=== PATIENT | female | born 1930 | race Caucasian/White ===

== ENCOUNTER → 2018-06-13 | Outpatient (CLI) | payer MEDICARE ==
[2018-06-13 11:39] VITALS: BP 154/84; PULSE 101; RESP 16
--- NOTE | 2018-06-13 11:59 | P.PN ---
Subjective Progress Note Date: 06/13/18 This is a pleasant 88-year-old lady with chronic history of lower back pain and radiation to the lower extremities more on the right side than the left side. The patient also feels no burning pain in the right thigh that happens intermittently. She also feels some weakness in her legs but she denies any bowel or bladder dysfunction or any weight loss. She also denies any nocturnal pain. The patient had lumbar medial branch RFA previously and she responded very well to these procedures was prolonged pain relief more than 6 months as she states. She denies taking any anticoagulants except for aspirin. She does have history of diabetes with history of vaginal yeast infection after getting steroids from one of our procedures . Today, pt denies new-onset weakness, bowel/bladder incontinence, or any other signs or symptoms of cauda equina syndrome. There are no signs of acute intoxication, and no indications of medication diversion or overuse. In addition to above, 13-point review of systems is also negative for chest pain, shortness of breath, changes in vision, changes in hearing, new onset weakness, abdominal pain, diarrhea, extreme fatigue, malaise, fever, skin changes, homicidal or suicidal ideation, or bowel or bladder incontinence. Vital Signs: Reviewed in EMR Gen: AAOx3, NAD HEENT: PERRLA,hearing grossly normal Pulm: resp unlabored,CTA Heart:S1,S2, No Mur Neck: supple, trachea midline Neuro exam of the lower extremities: Decreased muscle strength to 4 out of 5 bilaterally and symmetrically in the lower extremities. More weakness in the right hip flexion strength and knee flexion bilaterally. Decreased but symmetrical knee reflexes and absent ankle reflexes bilaterally. Straight leg raising test: Negative Amanuel's test: Range of motion of the lumbar spine: Facet loading test: Positive Tenderness in the paravertebral musculature: Mild tenderness in the lumbar paravertebral area on the right side Neuro: CN II-XII grossly intact, Imaging: Reviewed in EMR/chart Assessment: Lumbar spondylosis without myelopathy Diabetes Plan: 1. Explanation: Opioid and psychological risk scores were reviewed. Diagnoses, prognoses, and multiple treatment options including but not limited to physical therapy, interventional therapies, adjuvant medical therapies, narcotic medication therapies, and surgery were discussed with the patient and all questions were answered to the patient's satisfaction. 2. Opioid agreement: The patient does not use opioids 3. Counseling: The patient was counseled extensively on SMOKING CESSATION, BODY MASS INDEX, EXERCISE. Specifically, the patient was instructed regarding the importance of smoking cessation, obesity, and exercise in the context of both chronic pain and overall health. 4. Procedures: Scheduled for right lumbar medial branch RFA using four needles for levels L3 4, L4 5, and L5-S1. If this procedure does not improve her burning pain in the right side and then we'll plan on doing an MRI on the lumbar spine. No steroids should be used for this procedure. 5. Consultations: None 6. Investigations: May need lumbar spine MRI in the future if she does not respond to the above-mentioned procedure 7. Medications: Continue using Tylenol for pain 8. Disposition: 9. Maps were reviewed and were appropriate. PQRS measures: 1-Patient's medications are documented in the chart. 2-Tobacco use is negative, counseling given 3-Patient has not had a pneumococcal vaccine. 4-Advanced care planning discussed, patient unable to give 5-Opioid contract signed with the patient. 6-Pain positive, follow-up visit or procedure scheduled 7-Patient's blood pressure measured and documented within normal limits. 8-Patient's weight was measured, and body mass index within the normal limits. 9-Patient WAS NOT identified as an unhealthy alcohol user. Objective - Vital Signs Vital signs: Vital Signs Temp Pulse 101 H 06/13/18 11:34 Resp 16 06/13/18 11:34 BP 154/84 06/13/18 11:34 Pulse Ox Intake & Output 06/12/18 06/13/18 06/13/18 18:59 06:59 18:59 Weight 52.163 kg
== END ==
LOC: PNWHC3 11:21
PROVIDERS: ATTEND Anesthesiology
DX: M47.816 Spondylosis without myelopathy or radiculopathy, lumbar region (principal); E11.9 Type 2 diabetes mellitus without complications
CPT/HCPCS: 99211

== ENCOUNTER → 2018-07-06 | Outpatient (CLI) | payer MEDICARE ==
--- NOTE | 2018-07-06 21:09 | US ---
EXAMINATION TYPE: US carotid duplex BILAT DATE OF EXAM: 07/06/2018 COMPARISON: NONE CLINICAL HISTORY: I65.23 OCCLUSION AND STENOSIS. No hx of TIA, patient states being on blood pressure meds due to carotid arteries. EXAM MEASUREMENTS: RIGHT: Peak Systolic Velocity (PSV) cm/sec ----- Right CCA: 51.7 ----- Right ICA: 185 ----- Right ECA: 48.1 ICA/CCA ratio: 3.6 RIGHT: End Diastole cm/sec ----- Right CCA: 12.9 ----- Right ICA: 28.8 ----- Right ECA: 1.2 LEFT: Peak Systolic Velocity (PSV) cm/sec ----- Left CCA: 63.2 ----- Left ICA: 87.9 ----- Left ECA: 89.0 ICA/CCA ratio: 1.4 LEFT: End Diastole cm/sec ----- Left CCA: 9.3 ----- Left ICA: 21.4 ----- Left ECA: 5.5 VERTEBRALS (direction of flow): Right Vertebral: Antegrade Left Vertebral: Antegrade Rhythm: Normal No plaque or wall thickening visualized. Elevated right distal ICA. Right significant stenosis. Ri ght ICA appears to be in a 's' shaped curvature, which could account for elevated velocity. IMPRESSION: 1. No sizable atherosclerotic plaque identified. There does appear to be ectasia of the right interna l carotid artery with increased right distal ICA velocity. The ratio is within normal limits. Elevate d velocity may be secondary to ectasia with no definite significant stenosis felt present. Given the discrepancy between the velocity and the ratio correlation with CTA of the carotid arteries could be performed as clinically warranted. Criteria for Assigning % of Stenosis / Diameter reduction (Estimation based on the indirect measurements of the internal carotid artery velocities (ICA PSV). 1. Normal (no stenosis)=ICA PSV < 125 cm/s: ratio < 2.0: ICA EDV<40 cm/s. 2. Less than 50% stenosis=ICA PSV < 125 cm/s: ratio < 2.0: ICA EDV<40 cm/s. 3. 50 to 69% stenosis=ICA PSV of 125 to 230 cm/s: ration 2.0 ? 4.0: ICA EDV 40-100 cm/s. 4. Greater than 70% stenosis to near occlusion= ICA PSV > 230 cm/s: ratio > 4.0: ICA EDV > 100 cm/s. 5. Near occlusion= ICA PSV velocities may be low or undetectable: variable ratio and ICA EDV. 6. Total occlusion=unable to detect flow.
--- NOTE | 2018-07-06 21:26 | US ---
EXAMINATION TYPE: US kidneys/renal and bladder DATE OF EXAM: 07/06/2018 COMPARISON: 05/21/2014 CLINICAL HISTORY: E11.22 Chronic Kidney Disease Stage 3. Abnormal labs. No pain. EXAM MEASUREMENTS: Right Kidney: 8.8 x 4.8 x 3.8 cm Left Kidney: 9.9 x 3.6 x 4.1 cm Right Kidney: Possible mild hydronephrosis visualized, prominent pyramids, appears smaller in size co mpared to contralateral kidney Left Kidney: Lateral cystic appearing lesions seen, largest - 2.5 x 2.6 x 2.4 cm. Lower pole promine nt tubular anechoic lesion visualized = 2.5 x 0.7 cm. Prominent pyramids seen. Bladder: distended, wnl Bilateral Jets seen IMPRESSION: 1. Mild right hydronephrosis with no evidence of nephrolithiasis. 2. Simple appearing left renal cysts. 3. Mild cortical thinning correlate for chronic medical renal disease.
== END ==
LOC: RADUSWWP 16:07
PROVIDERS: ATTEND Internal Medicine
DX: N13.30 Unspecified hydronephrosis (principal); N28.1 Cyst of kidney, acquired; E11.22 Type 2 diabetes mellitus with diabetic chronic kidney disease; I65.23 Occlusion and stenosis of bilateral carotid arteries
CPT/HCPCS: 76770; 93880

== ENCOUNTER 2018-07-10 07:48 | Day surgery (SDC) | payer MEDICARE ==
[2018-06-20 10:00] VITALS: BMI 22.4
[2018-07-10 08:21] VITALS: RESP 16; TEMP 97.3
[2018-07-10] MEDS: LACTATED RINGERS 1,000 ML IV SCH ×2 (08:27→08:52)
[2018-07-10 08:28] LABS: Glucose,Whole Blood 131 mg/dL (75-99)
--- NOTE | 2018-07-10 09:21 | P.PCN ---
Date of Procedure: 07/10/18 Procedure(s) Performed: PREOPERATIVE DIAGNOSIS: 1- Lumbar spondylosis with Facet Arthropathy. 2- Lumber DDD POSTOPERATIVE DIAGNOSIS: 1-Lumbar spondylosis with Facet Arthropathy. 2- Lumber DDD PROCEDURES : Right Radiofrequency thermocoagulation, L2-3 ,L3-L4, L4-L5, and L5-S1 medial branch, with fluoroscopic guidance ( which corresponding to Radiofrequency thermocoagulation of the facet joint at L3 4, L4 5 , L5-S1 ANESTHESIA: IV sedation with versed 0.5 mg and fentaneyl 50 mcg and local infiltration with lidocaine 1% 4 ml EBL: Minimal PROCEDURE INDICATION: The patient with low back pain secondary to lumbar spondylosis with facet arthropathy who had more than 50% relief of her pain with previous diagnostic lumbar medial branch block with bupivacaine. PROCEDURE DESCRIPTION / TECHNIQUE: The patient was seen and identified in the preoperative area. Risks, benefits, complications, including but not limited to risk of infection ,bleeding , allergic reactions to the medications and no complete pain releife , and alternatives were discussed with the patient, the patient agreed to proceed with the procedure and signed the consent. IV was started. Vital signs remained stable throughout the procedure. Patient was taken to the OR and time out was completed. The patient was placed in the prone position on the procedure table. The lumber area was prepped and draped in the usual sterile fashion. . Vital signs were closely monitored during the procedure .IV sedation was used during the procedure to decrease patients anxiety. Using AP and then oblique fluoroscopy, the eye of the Benito dog corresponding to the connection between the superior and transverse articular processes of right L2, L3, L4, and L5 were identified, marked, and localized with 1% lidocaine. Subsequently, a 18 -ti radiofrequency cannula with a 10-mm active tip was advanced guided by fluoroscopy to each of the eyes of the [place]ito dog at right L2 ,L3, L4, and L5. Each site then underwent sensory testing at 50 Hz and 0 to 1 volt and motor testing at 2.5 Hz and 0 to 3 volt with local stimulation, but no radicular symptoms down the legs. Thereafter the right L2-3 , L3-4, L4-5, and L5-S1 sites underwent radiofrequency thermocoagulation at 80 degrees celsius for 90 seconds after injecting 0.5 ml of PF lidocaine 1%. then After the thermocoagulation done , 1 ml of the block solution containing 4 ml of Ropivacaine 0.5% was injected at the right L2-3 ,L3-4 , L4-5 , and L5-S1, levels after negative aspiration of CSF and blood and with no paresthesias. Cannulas were retracted while injecting lidocaine 1% until the needle is out. At the end of the procedure, the skin was cleansed and bandages were applied. COMPLICATIONS: No acute complications. DISPOSITION / PLANS: The patient was placed in a supine position and transferred to the recovery area in a stable condition for observation and was discharged from the recovery room after meeting discharge criteria. Home discharge instructions given to the patient by the staff. The patient was reexamined prior to discharge. The patient will schedule a follow up in the clinic in 2-4 weeks.
[2018-07-10] MEDS ORDERED: IV FLUID CONTINUATION 1,000 ML IV ONE (09:29)
[2018-07-10] MEDS ORDERED: ONDANSETRON 4 MG/2 ML VIAL IVP ONE ×2 (09:37)
[2018-07-10] MEDS ORDERED: ONDANSETRON 4 MG/2 ML VIAL IVP STA (09:39)
--- NOTE | 2018-07-10 09:40 | FL ---
EXAMINATION TYPE: FL guided pain mgmt statistic DATE OF EXAM: 07/10/2018 CLINICAL HISTORY: Low back pain. TECHNIQUE: Fluoroscopy. COMPARISON: None. FINDINGS: Fluoroscopic guidance was provided during pain relief procedure performed by Dr. Pang . A total of 16 seconds of fluoroscopic time was utilized during the procedure and 3 spot images are acquired. Images acquired shows needle localization at multiple levels of the lumbar spine. IMPRESSION: As Above.
[2018-07-10 09:59] VITALS: BP 160/74; PULSE 80
== END 2018-07-10 10:04 | disposition home or self-care (01) ==
LOC: ORPAIN 07:48
PROVIDERS: ATTEND Specialist
DX: M47.816 Spondylosis without myelopathy or radiculopathy, lumbar region (principal); M51.36 Other intervertebral disc degeneration, lumbar region; E11.9 Type 2 diabetes mellitus without complications; I10 Essential (primary) hypertension; K21.9 Gastro-esophageal reflux disease without esophagitis; F41.9 Anxiety disorder, unspecified; G47.30 Sleep apnea, unspecified; Z88.1 Allergy status to other antibiotic agents; Z88.5 Allergy status to narcotic agent; Z88.2 Allergy status to sulfonamides
CPT/HCPCS: 64635; 64636; J2250; J2405; J3010; 99152; 99153

== ENCOUNTER → 2018-12-29 | Outpatient (CLI) | payer MEDICARE ==
[2018-12-29 10:21] LABS: Basophils % (A) 1 %; Eosinophils # (A) 0.1 k/uL (0-0.7); Eosinophils % (A) 2 %; HCT 38.2 % (34.0-46.0); HGB 11.5 gm/dL (11.4-16.0); Hypochromasia Slight; Lymphocytes # (A) 1.3 k/uL (1.0-4.8); Lymphocytes % (A) 24 %; MCH 26.9 pg (25.0-35.0); MCHC 30.2 g/dL (31.0-37.0); MCV 89.3 fL (80.0-100.0); Mean Platelet Volume 7.7; Monocytes # (A) 0.2 k/uL (0-1.0); Monocytes % (A) 4 %; Neutrophils # (A) 3.6 k/uL (1.3-7.7); Neutrophils % (A) 68 %; Platelet Count 252 k/uL (150-450); RBC 4.28 m/uL (3.80-5.40); RDW 13.7 % (11.5-15.5); WBC 5.3 k/uL (3.8-10.6)
[2018-12-29 11:35] LABS: Potassium 5.2 mmol/L (3.5-5.1)
== END | disposition home or self-care (01) ==
LOC: LABPAT 09:52
PROVIDERS: ATTEND Obstetrics & Gynecology
DX: Z01.812 Encounter for preprocedural laboratory examination (principal); E11.9 Type 2 diabetes mellitus without complications; I10 Essential (primary) hypertension; N81.10 Cystocele, unspecified
CPT/HCPCS: 36415; 80051; 82565; 82947; 84520; 85025; 86850; 86900; 86901; 87077; 87086; 87186

== ENCOUNTER 2019-01-07 07:38 | Day surgery (SDC) | payer MEDICARE ==
[2019-01-03 11:13] VITALS: BMI 22.8
[~2019-01-07 07:38] MED LIST: LACTATED RINGERS 1,000 ML IV SCH; LIDOCAINE 1% 20 ML VIAL (10MG/ML) FOR IV START INTRADERMA PRN; METOCLOPRAMIDE 5 MG/ML 2 ML VIAL IVP PRN; MORPHINE SULFATE 2 MG/ML SYRINGE IV PRN; ONDANSETRON 4 MG/2 ML VIAL IVP ONE
[2019-01-07 08:17] LABS: Glucose,Whole Blood 137 mg/dL (75-99)
[2019-01-07] MEDS ORDERED: DEXAMETHASONE SOD PHOSPHATE 10 MG/ML 1 ML VIAL IV ONE (08:35)
[2019-01-07] MEDS ORDERED: PROPOFOL 10 MG/ML 20 ML VIAL IV ONE (09:19)
[2019-01-07] MEDS ORDERED: fentaNYL (PF) 50 MCG/ML 2 ML AMP ONE (09:19)
[2019-01-07] MEDS ORDERED: ACETAMINOPHEN IV (For NPO) 1,000 MG/100 ML VIAL ONE (09:19)
[2019-01-07] MEDS ORDERED: diphenhydrAMINE 50 MG/ML 1 ML VIAL IVP PRN (09:31)
[2019-01-07] MEDS ORDERED: KETOROLAC 30 MG/ML 1 ML VIAL IVP PRN (09:31)
[2019-01-07] MEDS ORDERED: ONDANSETRON 4 MG/2 ML VIAL IVP PRN (09:31)
[2019-01-07] MEDS ORDERED: IBUPROFEN 600 MG TAB PO PRN (09:31)
[2019-01-07] MEDS ORDERED: SIMETHICONE 80 MG CHEWABLE PO PRN (09:31)
[2019-01-07] MEDS ORDERED: LACTATED RINGERS 1,000 ML IV SCH (09:45)
[2019-01-07] MEDS ORDERED: VASOPRESSIN 20 UNIT/ML 1 ML VIAL SQ ONE (09:46)
[2019-01-07] MEDS ORDERED: BACITRACIN 500 UNIT/GM OINT 28.4 GM TUBE TOPICAL ONE (09:46)
--- NOTE | 2019-01-07 10:06 | P.OP ---
Date of Procedure: 01/07/19 Preoperative Diagnosis: #1. Symptomatic cystocele Postoperative Diagnosis: Same Procedure(s) Performed: #1. Anterior colporrhaphy (cystocele repair) Anesthesia: spinal Surgeon: Aravind Díaz Regulatory Compliance Coordinator #1: Kyleigh Cohen Estimated Blood Loss (ml): 5 IV fluids (ml): 500 Urine output (ml): 100 Pathology: none sent Condition: stable Disposition: PACU Operative Findings: Findings from the officer reconfirmed in the operating room, there is a grade 2- 3 cystocele present with otherwise good apical vaginal support and no apparent rectocele. Clear urine was seen both before and after the case. Description of Procedure: The patient was prepped and draped in usual fashion after spinal anesthesia was administered by the anesthesiologist. A weighted speculum was placed and the bladder drained of approximately 100 mL of clear екатерина urine. The uterosacral dimples were grasped with Allis clamps and the mucosa infused with diluted vasopressin solution from the vaginal apex to the urethral apex. The area between the uterosacral dimples was opened sharply with a scalpel and the Allises repositioned on the mucosal edge. The vesicovaginal mucosa was undermined in the midline with the Metzenbaum scissors and divided with Allis clamps placed along the margins. The overlying mucosa was sharply and bluntly dissected from the underlying tissues. Once adequate reflection of been carried out, serial Mami plication stitches were placed from the urethral apex to the apex of the vagina using 2-0 PDS. The extraneous vaginal mucosa was trimmed and the vaginal mucosa closed with a running locking stitch of 2-0 Vicryl from urethral apex to the apex of the vagina. Estimated blood loss for the case was approximately 5 mL. There were no complications. All sponge, instrument, and needle counts were correct. The patient tolerated the procedure well and proceeded to the recovery room in stable condition.
[2019-01-07] MEDS ORDERED: diphenhydrAMINE 50 MG/ML 1 ML VIAL IVP ONE ×2 (10:14)
[2019-01-07] MEDS ORDERED: NALOXONE 0.4 MG/ML 1 ML VIAL IV PRN (10:24)
[2019-01-07 10:36] LABS: Glucose,Whole Blood 197 mg/dL (75-99)
[2019-01-07 11:46] LABS: Glucose,Whole Blood 240 mg/dL (75-99)
[2019-01-07 13:16] LABS: Glucose,Whole Blood 224 mg/dL (75-99)
[2019-01-07] MEDS ORDERED: MECLIZINE 12.5 MG TAB PO PRN (15:42)
[2019-01-07] MEDS ORDERED: diphenhydrAMINE 25 MG CAP PO STA (15:47)
[2019-01-07] MEDS ORDERED: MECLIZINE 12.5 MG TAB PO STA (15:47)
--- NOTE | 2019-01-07 16:15 | P.CONS ---
History of Present Illness - Reason for Consult Consult date: 01/07/19 Medical management Requesting physician: Aravind Díaz - Chief Complaint Medical management - History of Present Illness 88-year-old female with PMH of benign positional vertigo, diabetes mellitus, hypertension, migraines, constipation and cystocele presents to [facility] for elective surgery. She underwent anterior aolporrhaphy for systematic cystocele on 01/07/2019. She was seen and examined postoperatively. Patient reports whole-body itching since her surgical procedure. Patient also complains of dizziness, described as room spinning sensation, related to chronic vertigo that she has been experiencing for the past 20 years. Patient states that her dizziness is worsened with changes in head position. She denies any recent upper respiratory viral infections. She denies any fullness of the ears. She denies any head trauma. Patient states that she has been a diabetic over the past 20 years and has never been on insulin. Her fasting blood sugars usually range from 120-140 but over the last few weeks has been as high as 175. Patient relates her hyperglycemia to feeling overly stressed due to this surgical procedure that she had done today. Patient states that she watches her diet but does not exercise much due to frequent falls. Patient denies any headache, lower extremity edema, nausea or vomiting, fever or chills, cough, chest pain, shortness of breath, changes in urination or bowel habits. Patient reports a decreased appetite since his surgical procedure. She denies any numbness/weakness/tingling of the extremities. Review of Systems Pertinent positives and negatives as discussed in HPI, a complete review of systems was performed and all other systems are negative. Past Medical History Past Medical History: Diabetes Mellitus, Eye Disorder, GERD/Reflux, Hyperlipidemia, Hypertension, Sleep Apnea/CPAP/BIPAP Additional Past Medical History / Comment(s): DYSURIA, BURNING AND TINGLING RIGHT LEG related to back pain, HX OF FALL 2006 WITH SUBDURAL HEMATOMA. FALL 2012 WITH PELVIC FX. started antibiotic for UTI,. 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 History of Any Multi-Drug Resistant Organisms: None Reported Past Surgical History: Bladder Surgery, Breast Surgery, Hysterectomy, Orthopedic Surgery, Tonsillectomy Additional Past Surgical History / Comment(s): surg. for sleep apnea, left breast biopsy. LT ANKLE SX, COLONOSCOPY, EGD, BILAT CATARACTS Past Anesthesia/Blood Transfusion Reactions: Motion Sickness, Postoperative Nausea & Vomiting (PONV) Smoking Status: Never smoker - Past Family History Daughter(s) Family Medical History: Cancer Brother(s) Family Medical History: Cancer Medications and Allergies Home Medications Medication Instructions Recorded Confirmed Type Aspirin 81 mg PO DAILY 12/25/14 01/03/19 History Atorvastatin [Lipitor] 20 mg PO HS 12/25/14 01/07/19 History Azelastine HCl [Astepro] 2 sprays NASAL BID 12/25/14 01/07/19 History Calcium Carbonate [Calcium] 750 mg PO BID 12/25/14 01/07/19 History Cholecalciferol [Vitamin D3] 1,000 unit PO BID 12/25/14 01/07/19 History Losartan Potassium [Cozaar] 25 mg PO DAILY@1800 12/25/14 01/07/19 History Omeprazole [PriLOSEC] 20 mg PO AC-SUPPER 12/25/14 01/07/19 History Propylene Glycol/Peg 400/Pf 1 drop BOTH EYES HS 12/25/14 01/07/19 History [Systane 0.3-0.4% Eye Drops] Repaglinide [Prandin] 1 mg PO AC-TID 12/25/14 01/07/19 History metFORMIN HCL ER [Glucophage Xr] 500 mg PO HS 12/25/14 01/07/19 History sitaGLIPtin [Januvia] 50 mg PO QAM 12/25/14 01/07/19 History ALPRAZolam [Xanax] 0.125 mg PO TID 01/20/15 01/07/19 History Carboxymethylcellulose Sodium 1 - 2 drops BOTH EYES BID 01/20/15 01/07/19 History [Refresh Tears] Meclizine [Antivert] 12.5 mg PO TID PRN 01/20/15 01/07/19 History Estrogens, Conjugated Cream 1 applicator VAGINAL DIRECTED 01/03/19 01/07/19 History [Premarin Cream] Nitrofurantoin Monohyd/M-Cryst 100 mg PO Q12HR 01/03/19 01/07/19 History [Macrobid] Allergies Allergy/AdvReac Type Severity Reaction Status Date / Time codeine Allergy CONFUSION Verified 01/07/19 07:51 , HEAD ACHE Sulfa (Sulfonamide Allergy sore Verified 01/07/19 07:51 Antibiotics) throat,N/V,headache sulfamethoxazole Allergy headache,N/V,sore Verified 01/07/19 07:51 [From Bactrim] throat trimethoprim [From Bactrim] Allergy sore Verified 01/07/19 07:51 throat,n/v,headache banana AdvReac GI upset Verified 01/07/19 07:51 pineapple AdvReac GI upset Verified 01/07/19 07:51 Physical Exam Vitals: Vital Signs Temp Pulse Pulse Resp BP BP Pulse Ox 01/07/19 15:00 18 01/07/19 13:25 16 01/07/19 11:25 18 100 01/07/19 10:56 81 16 152/70 96 01/07/19 10:41 83 16 147/79 99 01/07/19 10:26 83 16 159/72 98 01/07/19 10:11 97.2 F L 90 18 155/70 98 01/07/19 08:06 98.3 F 97 16 165/74 96 Intake and Output 01/07/19 01/07/19 01/07/19 06:59 14:59 22:59 Intake Total 1000 Output Total 105 Balance 895 Intake: IV 1000 Output: Urine 100 Estimated Blood Loss 5 General: [non toxic], [no distress], [appears at stated age] Derm: [warm], [dry] Head: [atraumatic], [normocephalic], [symmetric] Eyes: [EOMI], [no lid lag], [anicteric sclera] Mouth: [no lip lesion], [mucus membranes moist] Cardiovascular: [S1S2 reg], [tachycardia], [positive DP pulse bilateral], Lungs: [CTA bilateral], [no rhonchi, no rales] , [no accessory muscle use] Abdominal: [soft], [ nontender to palpation], [no guarding], [no appreciable organomegaly] Ext: [no gross muscle atrophy], [no edema], [no contractures] Neuro: [ CN II-XI grossly intact], [no focal neuro deficits] Psych: [Alert], [oriented], [appropriate affect] Results Labs: Abnormal Lab Results - Last 24 Hours (Table) 01/07/19 01/07/19 01/07/19 Range/Units 08:13 10:34 11:43 POC Glucose (mg/dL) 137 H 197 H 240 H (75-99) mg/dL 01/07/19 Range/Units 13:14 POC Glucose (mg/dL) 224 H (75-99) mg/dL Assessment and Plan Assessment: Assessment and Plan Diabetes mellitus with hyperglycemia Vertigo, likely benign positional Itching Chronic conditions: hypertension, chronic kidney disease, migraines, history of constipation Cntdy-go-qjix glucose 224. On metformin and Januvia and Prandin at home. Plans: Insulin sliding scale. Regular Accu-Cheks. Hypoglycemic precautions. Plans: Resume home medication of meclizine as needed for vertigo and Xanax. Fall precautions. Unknown etiology. Plans: 1 time dose of Benadryl. Resume all home medications. DVT prophylaxis: [SCD] Discussed with: [Patient] Anticipated discharge: [Tomorrow] Anticipated discharge place: [Home] A total of [45] minutes was spent on the care of this complex patient more than 50% of the time was spent in counseling and care coordination. Patient names her daughter Mojgan decision-maker in the case that she can't make decisions for herself. Patient reiterates wanting to remain full code at this time. Her PCP is Dr. Phillips. Her anticipated discharge is tomorrow. Thank you for this consultation. Please call [facility] with any additional questions or concerns.
[2019-01-07 16:32] LABS: Glucose,Whole Blood 224 mg/dL (75-99)
[2019-01-07] MEDS: INSULIN ASPART (NovoLOG) 100 UNIT/ML VIAL SQ SCH ×2 (17:27→21:11)
[2019-01-07] MEDS ORDERED: PANTOPRAZOLE 40 MG TABLET PO SCH (17:30)
[2019-01-07] MEDS ORDERED: LOSARTAN 25 MG TAB PO SCH (18:00)
[2019-01-07] MEDS ORDERED: ACETAMINOPHEN TAB 325 MG TAB PO PRN (20:01)
[2019-01-07] MEDS: SENNOSIDES-DOCUSATE SODIUM 1 EACH TAB PO SCH (20:06)
[2019-01-07] MEDS ORDERED: ATORVASTATIN 20 MG TAB PO SCH (21:00)
[2019-01-07 21:05] LABS: Glucose,Whole Blood 212 mg/dL (75-99)
[2019-01-07] MEDS: ALPRAZolam 0.25 MG TAB PO SCH ×2 (21:30→22:37)
[2019-01-08 02:23] LABS: Glucose,Whole Blood 181 mg/dL (75-99)
[2019-01-08] MEDS: INSULIN ASPART (NovoLOG) 100 UNIT/ML VIAL SQ SCH ×2 (02:28→07:55)
[2019-01-08 06:53] LABS: Basophils % (A) 0 %; Eosinophils # (A) 0.1 k/uL (0-0.7); Eosinophils % (A) 1 %; Lymphocytes # (A) 1.4 k/uL (1.0-4.8); Lymphocytes % (A) 13 %; MCH 27.1 pg (25.0-35.0); MCHC 31.4 g/dL (31.0-37.0); MCV 86.1 fL (80.0-100.0); Mean Platelet Volume 7.7; Monocytes # (A) 0.6 k/uL (0-1.0); Monocytes % (A) 5 %; Neutrophils # (A) 8.7 k/uL (1.3-7.7); Neutrophils % (A) 80 %; Platelet Count 311 k/uL (150-450); RBC 4.06 m/uL (3.80-5.40); RDW 13.9 % (11.5-15.5); WBC 10.9 k/uL (3.8-10.6)
--- NOTE | 2019-01-08 07:46 | P.PN ---
Progress Note - Text Date:01/08 Time:640am Patient is status post anterior colporrhaphy. Patient seen this morning with VAS score of 0.no c/o of pruritus, no c/o nausea/vomiting, comfortable and doing well.
[2019-01-08 07:51] LABS: Glucose,Whole Blood 165 mg/dL (75-99)
[2019-01-08] MEDS: SENNOSIDES-DOCUSATE SODIUM 1 EACH TAB PO SCH (07:57)
[2019-01-08 08:24] VITALS: BP 149/79; RESP 18; TEMP 98.1
--- NOTE | 2019-01-08 08:37 | P.DS ---
Providers Expected date of discharge: 01/08/19 Attending physician: Aravind Díaz Consults: 01/07/19 09:31 Consult Physician Routine Consulting Provider: Felix Phillips Consult Reason/Comments: Medical management Do you want consulting provider notified?: Yes Primary care physician: Felix Phillips - Discharge Diagnosis(es) (1) Cystocele Current Visit: Yes Status: Acute Hospital Course: The patient is an 88-year-old woman who presented the office over the last 2-3 months with consistent and increasing discomfort vaginally complaining of pressure and a sensation of bulging. She has a history of vaginal instructed he with anterior repair a number of years ago. Examination the office noted a small cystocele, perhaps grade 2-3. She had a vaginal estrogen started which initially relieved some of the symptoms but they returned shortly after beginning. She also has had multiple different bladder infections over the course of the last several months. As result of the continuous nature of her symptoms despite all attempts to temporize them, the patient felt very strongly that she should have her cystocele repaired. She therefore was taken the operating room where she underwent a cystocele repair in an uncomplicated fashion. Her postoperative course was uneventful aside from the patient developing significant confusion during the night. She does appear to be more oriented this morning and otherwise has been able to void without difficulty after the catheter came out with minimal post void residual by-year-old scan device. As a result, she was deemed stable for discharge and will be discharged home to follow-up in the office in 2 weeks for recheck and 6 weeks routinely. Discharge instructions included calling for any significantly increased bleeding, pain, fever, urinary complaints, GI complaints, or anything else that concerned her. She was additionally instructed to do no heavy lifting over the next 6 weeks. She understood all instructions and agrees to follow up as noted above. She will go home on her normal home medications as are outlined in the chart. [id number] analgesic pain medications should be more than adequate. Discharge hemoglobin and hematocrit were 11.0 and 35.0 respectively. She did after surgery and overnight have some mild to moderately elevated blood sugars which were treated with sliding scale insulin. Procedures: #1. Anterior colporrhaphy Patient Condition at Discharge: Stable Plan - Discharge Summary Discharge Rx Participant: Yes New Discharge Prescriptions: No Action Cholecalciferol [Vitamin D3] 1,000 unit PO BID Azelastine HCl [Astepro] 2 sprays NASAL BID Atorvastatin [Lipitor] 20 mg PO HS metFORMIN HCL ER [Glucophage Xr] 500 mg PO HS Repaglinide [Prandin] 1 mg PO AC-TID Omeprazole [PriLOSEC] 20 mg PO AC-SUPPER Aspirin 81 mg PO DAILY sitaGLIPtin [Januvia] 50 mg PO QAM Losartan Potassium [Cozaar] 25 mg PO DAILY@1800 Calcium Carbonate [Calcium] 750 mg PO BID Propylene Glycol/Peg 400/Pf [Systane 0.3-0.4% Eye Drops] 1 drop BOTH EYES HS ALPRAZolam [Xanax] 0.125 mg PO TID Meclizine [Antivert] 12.5 mg PO TID PRN PRN Reason: Vertigo Carboxymethylcellulose Sodium [Refresh Tears] 1 - 2 drops BOTH EYES BID Estrogens, Conjugated Cream [Premarin Cream] 1 applicator VAGINAL DIRECTED Nitrofurantoin Monohyd/M-Cryst [Macrobid] 100 mg PO Q12HR Discharge Medication List Aspirin 81 mg PO DAILY 12/25/14 [History] Atorvastatin [Lipitor] 20 mg PO HS 12/25/14 [History] Azelastine HCl [Astepro] 2 sprays NASAL BID 12/25/14 [History] Calcium Carbonate [Calcium] 750 mg PO BID 12/25/14 [History] Cholecalciferol [Vitamin D3] 1,000 unit PO BID 12/25/14 [History] Losartan Potassium [Cozaar] 25 mg PO DAILY@1800 12/25/14 [History] Omeprazole [PriLOSEC] 20 mg PO AC-SUPPER 12/25/14 [History] Propylene Glycol/Peg 400/Pf [Systane 0.3-0.4% Eye Drops] 1 drop BOTH EYES HS 12/25/14 [History] Repaglinide [Prandin] 1 mg PO AC-TID 12/25/14 [History] metFORMIN HCL ER [Glucophage Xr] 500 mg PO HS 12/25/14 [History] sitaGLIPtin [Januvia] 50 mg PO QAM 12/25/14 [History] ALPRAZolam [Xanax] 0.125 mg PO TID 01/20/15 [History] Carboxymethylcellulose Sodium [Refresh Tears] 1 - 2 drops BOTH EYES BID 01/20/15 [History] Meclizine [Antivert] 12.5 mg PO TID PRN 01/20/15 [History] Estrogens, Conjugated Cream [Premarin Cream] 1 applicator VAGINAL DIRECTED 01/03/19 [History] Nitrofurantoin Monohyd/M-Cryst [Macrobid] 100 mg PO Q12HR 01/03/19 [History] Follow up Appointment(s)/Referral(s): Aravind Díaz MD [STAFF PHYSICIAN] - 2 Weeks Discharge Disposition: HOME SELF-CARE
[2019-01-08] MEDS ORDERED: ASPIRIN 81 MG PO SCH (09:00)
[2019-01-08 09:24] VITALS: PULSE 100
[2019-01-08] MEDS ORDERED: ACETAMINOPHEN TAB 325 MG TAB PO PRN (09:33)
== END 2019-01-08 10:05 | disposition home or self-care (01) ==
LOC: OR 07:38 → 4FBP 10:11 → OR 01-08 10:05
PROVIDERS: ATTEND Obstetrics & Gynecology
DX: N81.10 Cystocele, unspecified (principal); I10 Essential (primary) hypertension; E78.5 Hyperlipidemia, unspecified; E78.00 Pure hypercholesterolemia, unspecified; D64.9 Anemia, unspecified; E11.9 Type 2 diabetes mellitus without complications; M81.0 Age-related osteoporosis without current pathological fracture; G43.909 Migraine, unspecified, not intractable, without status migrainosus; G47.33 Obstructive sleep apnea (adult) (pediatric); Z99.89 Dependence on other enabling machines and devices; H81.10 Benign paroxysmal vertigo, unspecified ear; Z90.710 Acquired absence of both cervix and uterus; Z98.49 Cataract extraction status, unspecified eye; H53.421 Scotoma of blind spot area, right eye; Z83.3 Family history of diabetes mellitus; Z80.3 Family history of malignant neoplasm of breast; Z79.84 Long term (current) use of oral hypoglycemic drugs; Z79.82 Long term (current) use of aspirin; Z79.899 Other long term (current) drug therapy; Z88.5 Allergy status to narcotic agent; Z88.2 Allergy status to sulfonamides; Z91.018 Allergy to other foods
CPT/HCPCS: 86900; 86901; 85025; 86850; 57240; J1200; J1100; J2765; J2405; J3010; J0131; J2704

== ENCOUNTER → 2019-03-15 | Outpatient (CLI) | payer MEDICARE | END | disposition home or self-care (01) | LOC: LABWHC1 13:21 | PROVIDERS: ATTEND Obstetrics & Gynecology | DX: N39.0 Urinary tract infection, site not specified (principal) | CPT/HCPCS: 87086 ==